=== PATIENT | female | born 1955 | race Caucasian/White ===

== ENCOUNTER 2019-10-25 05:23 | Emergency (ER) | payer MEDICARE ==
[2019-10-25 05:31] VITALS: TEMP 97.9
[2019-10-25] MEDS ORDERED: ORPHENADRINE 30 MG/ML 2 ML VIAL IVP STA (06:16)
[2019-10-25] MEDS ORDERED: METOCLOPRAMIDE 5 MG/ML 2 ML VIAL IVP STA (06:16)
[2019-10-25] MEDS ORDERED: diphenhydrAMINE 50 MG/ML 1 ML VIAL IVP STA (06:16)
[2019-10-25] MEDS ORDERED: KETOROLAC 30 MG/ML 1 ML VIAL IVP STA (06:16)
--- NOTE | 2019-10-25 06:19 | ED ---
Headache HPI - General Chief Complaint: Headache Stated Complaint: headache Time Seen by Provider: 10/25/19 06:08 Source: RN notes reviewed, old records reviewed Mode of arrival: ambulatory Limitations: no limitations - History of Present Illness Initial Comments: 64-year-old female presents emergency department today with 3 days of a headache. She states that she fell she couldn't sleep well because of tickling in her throat and runny nose. Patient states that she did take an Ambien but now feels somewhat nauseated and in Loop from that. She reports that she had a headache and took a Tylenol 2:30. It went down to a 6 out of 10. Patient states that she not have complete resolution of her headaches that she fell she come to the ER. Patient reports nor for gets headaches. She states it's a bandlike pressure around the back of her scalp and from her head. - Related Data Previous Rx's Medication Instructions Recorded Acetaminophen Tab [Tylenol Tab] 650 mg PO Q4H #20 tablet 10/25/19 Ibuprofen [Motrin] 600 mg PO Q6HR PRN #20 tab 10/25/19 Allergies Allergy/AdvReac Type Severity Reaction Status Date / Time codeine AdvReac Nausea Verified 10/25/19 05:31 Review of Systems ROS Statement: Those systems with pertinent positive or pertinent negative responses have been documented in the HPI. ROS Other: All systems not noted in ROS Statement are negative. Past Medical History Past Medical History: No Reported History History of Any Multi-Drug Resistant Organisms: None Reported Past Surgical History: Tonsillectomy, Tubal Ligation Past Psychological History: No Psychological Hx Reported Smoking Status: Former smoker Past Alcohol Use History: Rare Past Drug Use History: None Reported General Exam - General Exam Comments Initial Comments: 64-year-old female. Alert and oriented 3. No acute distress. Limitations: no limitations General appearance: alert, in no apparent distress Head exam: Present: atraumatic, normocephalic, normal inspection Eye exam: Present: normal appearance ENT exam: Present: normal exam, mucous membranes moist Neck exam: Present: normal inspection. Absent: tenderness, meningismus, lymphadenopathy Respiratory exam: Present: normal lung sounds bilaterally. Absent: respiratory distress, wheezes, rales, rhonchi, stridor Cardiovascular Exam: Present: regular rate, normal rhythm, normal heart sounds. Absent: systolic murmur, diastolic murmur, rubs, gallop, clicks GI/Abdominal exam: Present: soft, normal bowel sounds. Absent: distended, tenderness, guarding, rebound, rigid Extremities exam: Present: normal inspection, full ROM, normal capillary refill. Absent: tenderness, pedal edema, joint swelling, calf tenderness Back exam: Present: normal inspection Neurological exam: Present: alert, oriented X3, CN II-XII intact Psychiatric exam: Present: normal affect, normal mood Skin exam: Present: warm, dry, intact, normal color. Absent: rash Course Vital Signs 10/25/19 05:27 Temperature 97.9 F Pulse Rate 50 L Respiratory 16 Rate Blood Pressure 117/59 O2 Sat by Pulse 96 Oximetry Medical Decision Making - Medical Decision Making Patient is a 64-year-old female presents emergency room today with a headache for the past 3 days. She says she did Tylenol was early this morning. She states that she has a sore throat past few days. Clinical exam shows no acute neurological deficits. Patient did take some Tylenol earlier this morning. Patient has positive influenza A. Patient was given IV fluid, Toradol, Norflex. Reevaluation based is resting comfortably in bed. - Lab Data Lab Results 10/25/19 Range/Units 06:43 Influenza Type A RNA Detected H (Not Detectd) Influenza Type B (PCR) Not Detected (Not Detectd) Disposition Clinical Impression: Influenza A Disposition: HOME SELF-CARE Condition: Good Instructions (If sedation given, give patient instructions): Acute Headache (ED), Influenza (ED) Additional Instructions: Please use medication as discussed. Please follow up with family doctor if symptoms have not improved over the next two days. Please return to the emergency room if your symptoms increase or worsen or for any other concerns. Prescriptions: Ibuprofen [Motrin] 600 mg PO Q6HR PRN #20 tab PRN Reason: Pain Acetaminophen Tab [Tylenol Tab] 650 mg PO Q4H #20 tablet Is patient prescribed a controlled substance at d/c from ED?: No Referrals: Nonstaff,Physician [Primary Care Provider] - 1-2 days Time of Disposition: 07:22
[2019-10-25 07:33] VITALS: BP 113/63; PULSE 60; RESP 18
== END 2019-10-25 07:32 | disposition home or self-care (01) ==
LOC: EC 05:23
DX: J10.1 Influenza due to other identified influenza virus with other respiratory manifestations (principal); Z87.891 Personal history of nicotine dependence; Z88.5 Allergy status to narcotic agent
CPT/HCPCS: 87502; 99284; 96374; 96375 ×3; J1200; J2360; J2765; J1885